=== PATIENT | female | born 1985 | race Caucasian/White ===

== ENCOUNTER 2022-07-28 18:21 | Emergency (ER) | payer OTHER ==
--- NOTE | 2022-07-28 19:49 | NUR ---
CALLED TO TRIAGE NO RESPONSE
--- NOTE | 2022-07-28 20:19 | NUR ---
CALLED TO TRIAGE NO RESPONSE
--- NOTE | 2022-07-28 21:48 | NUR ---
CALLED TO TRIAGE NO RESPONSE
== END 2022-07-28 22:50 | disposition left against medical advice (07) ==
LOC: ER 18:21
DX: Z53.21 Procedure and treatment not carried out due to patient leaving prior to being seen by health care provider (principal)